=== PATIENT | male | born 1950 | race Caucasian/White ===

== ENCOUNTER → 2023-04-01 10:13 | Outpatient (BNVA) | payer MEDICARE, SELFPAY | PROVIDERS: PCP Internal Medicine Geriatric Medicine; Visit Provider Nurse Practitioner ==

== ENCOUNTER 2025-02-08 12:04 | Outpatient (REF) | payer OTHER, MEDICAID, SELFPAY ==
--- OUTSIDE RECORDS SUMMARY | 2025-02-03 09:00 | XMS_ITS | Encounter Summary ---
Author Organization [employer] Address [address] [place] [address] Care Team Providers Care Blender Laborer Name Role Phone Name, Tristan WHITE Primary Care Provider [phone] Reason for Visit * Reason Comments PUBLICITY WRITER RV Encounter Details Date Type Department Care Team ([facility] st Contact Info) Description 02/03/2025 9:00 AM EDT Telemedicine [facility] MEDICINE [address] [place] [address] Olesya Bangura RN Long-term current use of opiate analgesic Social History Tobacco Use Types Packs/Day Years Used Date Smoking Tobacco: Former Cigarettes Passive Smoke Exposure: Current Alcohol Use Standard Drinks/Week Comments Never 0 (1 standard drink = 0.6 oz pur e alcohol) Depression Answer Date Recorded Patient Health Questionnaire-9 Score 0 12/02/2023 Patient Health Questionnaire-9 Score 0 12/02/2023 Last PHQ-9: Questionnaire Data Not on file 0 12/02/2023 Housing Stability Answer Date Recorded What is your housing situation today? I have ritchie anaya 12/02/[address] you li ve. Do you have problems with any of the following? None of the above 12/02/2023 Food Insecurity Answer Date Recorded Within the past 12 months, y ou worried that your food would run out before you got money to buy more: Never True 12/02/2023 Within the past 12 months,th e food you bought just didn't last and you didn't have enough money to get more: Never True Transportation Answer Date Recorded In the past 12 months, has l ack of transportation kept you from medical appts, meetings, work or from getting things needed for daily living? No 12/02/2023 Utilities Answer Date Recorded In the past 12 months, has t he electric, gas, oil or water company threatened to shut off services in your home? No 12/02/2023 Depression Answer Date Recorded Patient Health Questionnaire-2 Score 0 12/02/2023 Internet Access Answer Date Recorded Internet Access Q1 Yes 07/27/2024 Internet Access Q2 Not on file 07/27/2024 Sex and Gender Information Value Date Recorded Sex Assigned at Male 05/12/2022 10:21 AM EDT Legal Sex Male 10:21 AM EDT Gender Identity Male 05/12/2022 10:21 AM EDT Sexual Orientation Straight 05/12/2022 10 :21 AM EDT documented as of this encounter Progress Notes * Olesya Bangura RN - 02/03/2025 9:00 AM EDT SUBJECTIVE: Joby Vieira is a 74 y.o. year old male who is called for PUBLICITY WRITER RV Preferred language for medical information: Irish Interpreted needed: Yes Cooler Servicer service utilized: [employer] Cooler Servicer name: Jewels Cooler Servicer I.D #: [id number] Joby Vieira does report adherence to Percocet 5 mg, take 1 tablet every 12 hours, last refilled 01/10/2025. The patient last took Percocet on: 02/02/2025 Medication is: 80% % effective at alleviating pain. OBJECTIVE: PROCESS CONTROL BOARD OPERATOR checked: 02/03/2025 Pill count completed for Percocet , patient reports count today is 6 , anticipated count should be 7, this is as expected. Vital Signs Pain Score: 1 Pain Loc: Back Pain Education: Yes Last PCP visit: 12/02/2023, pt cancelled appt with PCP on 01/30/25. Controlled substance agreement signed: Controlled Substance Agreement 08/28/2023 Controlled Substance Agreement 09/02/2023 Controlled Substance Agreement 06/20/2024 PUBLICITY WRITER Tele Tier: 2 Current Medications[1] Smoking status: Denies ETOH use: Denies Illicit substances: Denies Marijuana use: No ASSESSMENT: Encounter Diagnosis Name Primary? Long-term current use of opiate analgesic PLAN: Narcan education provided: Previously discussed Narcan prescription: active Reminded patient he must be seen by his PCP at least yearly in order for PCP to prescribe his Percocet safely. Will send request to PCP for Percocet refill short supply d/t last PCP visit 12/02/23. Ptwas advised to schedule a visit SEEMA with his provider, pt stated he will call PCP's M.A. today. Pt stated he had received the PUBLICITY WRITER renewal forms and has mailed them back. Joby Vieira will continue taking medication as prescribed and follow up at the next Tele PUBLICITY WRITER renewal visit or sooner if needed. Joby Vieira has verbalized understanding of care plan. Future Appointments Date Time Provider Department Center 02/03/2025 9:00 AM Olesya Bangura RN [facility] 03/31/2025 10:00 AM Olesya Bangura RN MEDICINE [facility] Olesya Bangura RN [1] Current Outpatient Medications: oxyCODONE-acetaminophen (Percocet) 5-325 MG tablet, Take 1 tablet by mouth every 12 (twelve) hours if needed for severe pain for up to 28 days. Do not start before January 10, 2025., Disp: 56 tablet, Rfl: 0 aspirin 81 MG EC tablet, Take 1 tablet by mouth in the morning., Disp: , Rfl: levothyroxine (Synthroid, Levoxyl) 100 MCG tablet, TAKE 1 TABLET BY MOUTH ONCE DAILY THURSDAY TO THURSDAY AND HOLD ON SUNDAYS, Disp: 90 tablet, Rfl: 0 lisinopril-hydroCHLOROthiazide 20-12.5 MG tablet, TAKE 1 TABLET BY MOUTH EVERY DAY, Disp: 90 tablet, Rfl: 0 meclizine (Antivert) 25 MG tablet, TAKE 1 TABLET BY MOUTH THREE TIMES DAILY NEEDED FOR DIZZINESS, Disp: 90 tablet, Rfl: 0 nabumetone (Relafen) 500 MG tablet, Take 1 tablet by mouth every 12 (twelve) hours., Disp: , Rfl: pravastatin (Pravachol) 40 MG tablet, TAKE 1 TABLET BY MOUTH AT BEDTIME, Disp: 90 tablet, Rfl: 0 raNITIdine (Zantac) 150 MG tablet, Take 1 tablet by mouth 1 (one) time each day., Disp: , Rfl: documented in this encounter Plan of Treatment Upcoming Encounters Date Type Department Care Team (Late st Contact Info) Description 03/31/2025 10:00 AM EDT Telemedicine [facility] MEDICINE [address] [place] [id number] Olesya Bangura RN documented as of this encounter Visit Diagnoses Diagnosis Long-term current use of opiate analgesic Encounter for long-term (current) use of other medications documented in this encounter Additional Health Concerns Assessment Noted Time PHQ-9 Depression Total Score: 0 12/02/19 24 11:24 AM EDT documented as of this encounter Care Teams Blender Laborer Relationship Specialty Start Date End Date Name, MD Tristan [address] [place] [address] PCP - General Family Medicine 09/14/15 documented as of this encounter
--- OUTSIDE RECORDS SUMMARY | 2025-02-08 12:53 | XMS_ITS | Clinical Summary ---
Author Organization [facility] ity Address [address] [place] [address] Care Team Providers Care Counter Pocket Trimmer Name Role Phone Unavailable Primary Care Provider Unavailabl e Social History Tobacco Use Types Packs/Day Years Used Date Smoking Tobacco: Never Assessed Sex and Gender Information Value Date Recorded Sex Assigned at Not on file Legal Sex Male 7:38 AM EST Gender Identity Not on file Sexual Orientation Not on file Plan of Treatment Health Maintenance Due Date Last Done Comments DTaP,Tdap,and Td Vaccines (1 - Tdap) 1968 Pneumococcal Vaccine: 50+ Ye ars (1 of 1 - PCV) 1999 Zoster Vaccines (1 of 2) 1999 Abdominal Aortic Aneurysm (A AA) Screen 06/15/2022 Cholesterol Screening (Lipid Panel) 06/15/2022 Colorectal Cancer Screening: Colonoscopy 06/15/2022 Falls Risk Assessment 06/15/2022 Hepatitis C Screening 06/15/2022 Social Influencers of Health Screening 06/15/2022 COVID-19 Vaccine (1 - 2023-2 5 season) 2024 RSV Immunization Adult Patie nts (1 - 1-dose 75+ series) 2024 Depression Screening 07/13/2024 Influenza Vaccine (#1) 2025 HIB Vaccines Aged Out No longer eligi ble based on patient's age to complete this topic HPV Vaccines Aged Out No longer eligi ble based on patient's age to complete this topic Hepatitis A Vaccines Aged Out No long er eligible based on patient's age to complete this topic Hepatitis B Vaccines Aged Out No long er eligible based on patient's age to complete this topic IPV Vaccines Aged Out No longer eligi ble based on patient's age to complete this topic MMR Vaccines Aged Out No longer eligi ble based on patient's age to complete this topic Meningococcal ACWY Vaccine Aged Out N o longer eligible based on patient's age to complete this topic Meningococcal B Vaccine Aged Out No l onger eligible based on patient's age to complete this topic RSV Immunization Patients Un marilynn 20 months Aged Out No longer eligible b ased on patient's age to complete this topic Varicella Vaccines Aged Out No longer eligible based on patient's age to complete this topic
== END 2025-02-08 12:05 | disposition home or self-care (01) ==
LOC: HO.HHCL 12:04
DX: E06.3 Autoimmune thyroiditis (principal)
CPT/HCPCS: 36415; 84443

== ENCOUNTER 2025-03-16 11:09 | Outpatient (AMB) | payer OTHER, SELFPAY ==
--- NOTE | 2025-03-16 11:16 | MHC.OFFVIS ---
Vital Signs 03/16/25 11:19 Height 5 ft 6 in Weight 171 lb 1.259 oz BMI 27.6 BP 133/60 Blood Pressure Location Rt brachial Position Sitting Pulse 64 Intake Visit Reasons: 1 yr follow up Intake Note: Joby presents in office today in 1 year follow up of GERD. CC: Patient reports having more acid reflux and feeling it more in his throat. Senior Linux Engineer Required: Yes Senior Linux Engineer Language: Nursery School Attendant Name: Yani Accompanied by: Self / Same As Patient Allergies No Known Allergies Allergy (Verified 03/16/25 11:25) HPI HPI 1 yr follow up: Details: Assessment & Plan (1) GERD (gastroesophageal reflux disease): Code(s): K21.9 - Gastro-esophageal reflux disease without esophagitis Category: Medical Plan Ethiopian Pola Mariee He continues on his famotidine qhs and this is controlling his sx well. Apparently, his PCP did not take over the rx. ROV 1 years. Medications: Refilled famotidine 40 mg PO BEDTIME 90 tabs 2RF K27.9 - Peptic ulcer, site unspecified, unspecified as acute or chronic, without hemorrhage or perforation TODAY'S VISIT Shai MARIEE PFSH Medical History Elevated cholesterol Constipation History of snoring Abdominal bloating History of Helicobacter pylori infection Coronary artery disease Hypothyroidism GERD (gastroesophageal reflux disease) IgG monoclonal gammopathy Leukopenia Surgical History Hx of hand surgery History of esophagogastroduodenoscopy (EGD) H/O colonoscopy Hx of appendectomy Family History Father Colon cancer Mother Diabetes Sister Diabetes Brother Prostate cancer Social History Housing: House Unable to assess alcohol history related to: Unknown Alcohol intake: former Patient Tobacco Use Status: Former Tobacco user Tobacco use type: Cigarette Current occupational status: disabled Current occupation: rt hand Gender identity: Male Review of Systems Const Denies fatigue, Denies fever(s), Denies night sweats, Denies poor appetite and Denies weight loss ENT Reports Normal hearing present, Denies dental pain, Denies dysphagia, Denies hearing loss, Denies mouth pain, Denies odynophagia, Denies throat swelling, Denies tongue swelling and Reports other (Dentition adequate) Card Reports no additional complaints Resp Reports no additional complaints GI Details: Denies abdominal pain, Denies melena, Denies bloating, Denies hematochezia, Denies constipation, Denies GI cramping, Denies dysphagia, Denies excessive flatus, Denies early satiety, Reports heartburn, Denies diarrhea, Denies nausea, Denies odynophagia, Denies vomiting and Denies hematemesis Skin/Breast Denies pruritus, Denies lesions, Denies rash and Denies jaundice Neuro Reports Normal hearing present and Denies Abnormal speech present Endo Denies fatigue Aller/Immun Denies throat swelling and Denies tongue swelling Physical Exam Vital Signs: Last Vital Signs Pulse 64 03/16/25 11:19 BP 133/60 03/16/25 11:19 BMI result Body Mass Index 27.6 Const General: cooperative, no acute distress, well developed and well groomed Nutritional Appearance: well nourished and obese Orientation/consciousness: oriented to person, oriented to place and oriented to time Limitations: language barrier HEENT Head: Yes normocephalic and Yes atraumatic Eyes General: appearance normal, both eyes and all related structures Pupils: Equal, round and reactive pupils present Neck Neck: Yes normal visual inspection and Yes no lymphadenopathy Thyroid: Thyroid normal Resp Effort & Inspection: normal respiratory effort and able to speak in complete sentences Auscultation: clear to auscultation bilaterally Cardio Rate: regular rate Rhythm: regular rhythm Heart sounds: Normal, physiologic split S2 sound present Peripheral pulses: radial pulses present and posterior tibial pulses present GI Inspection: No distended, No Abdominal panniculus present and Yes obesity Palpation (GI): Soft to palpation, nontender, no guarding, not rigid and No hepatosplenomegaly present Percussion: Yes normal to percussion Auscultation: normal bowel sounds Rectal Exam - Male: Yes deferred Skin General skin exam: no rashes or lesions noted, turgor normal, skin not dry, no jaundice, No spider nevi and no striae Rashes: no rashes Nails: normal Neuro General: oriented to person, oriented to place and oriented to time Cranial nerves: Yes Equal, round and reactive pupils present and Yes Normal hearing present Speech: No Abnormal speech present Extrem General: Yes normal to inspection, No clubbing, No cyanosis and No edema Psych Appearance: grossly normal and well kempt Mental Status: mental status grossly normal Speech and movement: Normal speech and movement present Affect: normal affect Attitude: cooperative Thought process: Normal thought process present and not confabulating Thought content: Normal thought content present Insight: Good insight present (Psych) Judgement: Good judgement present (Psych) Assessment & Plan Assessment & Plan (1) GERD (gastroesophageal reflux disease): Code(s): K21.9 - Gastro-esophageal reflux disease without esophagitis Category: Medical (2) Tubular adenoma of colon: Comment: 07/2023 scope= TA repeat in 5 years; Code(s): D12.6 - Benign neoplasm of colon, unspecified Category: Medical Plan Ethiopian # YANI MAIREE He tells me that he takes his famotidine at night and he feels well overnight into the morning but then later in the day he is developing more dyspepsia and burning in his throat. I think this is because he is simply metabolizing out the dose of famotidine so will try to get him twice a day dosing. He also feels this may be the issue. He has no other new medical problems to report in his moving his bowels well. Return office visit in 6 weeks Medications: Changed From famotidine 40 mg PO BEDTIME 90 tabs 2RF K27.9 - Peptic ulcer, site unspecified, unspecified as acute or chronic, without hemorrhage or perforation To famotidine 40 mg PO BID 180 tabs 2RF K27.9 - Peptic ulcer, site unspecified, unspecified as acute or chronic, without hemorrhage or perforation Refilled famotidine 40 mg PO BEDTIME 90 tabs 2RF K27.9 - Peptic ulcer, site unspecified, unspecified as acute or chronic, without hemorrhage or perforation Coding Level of Care Code Est Pt Level 3 (67239) Diagnoses GERD (gastroesophageal reflux disease) K21.9 Tubular adenoma of colon D12.6
[2025-03-16 11:19] VITALS: BP 133/60; PULSE 64; BMI 27.6
--- OUTSIDE RECORDS SUMMARY | 2025-03-16 12:47 | XMS_ITS | Clinical Summary ---
Author Organization [employer] Address [address] [facility] 7t [place] [address] Care Team Providers Care Gunsmith Apprentice Name Role Phone Name, Tristan WHITE Primary Care Provider [phone] Allergies No known active allergies Medications aspirin 81 MG EC tablet Take 1 tablet by mouth in the morning. 10/15/19 19 Active nabumetone (Relafen) 500 MG tablet Take 1 tablet by mouth every 12 (twelve) hours. 03/02/20 20 Active raNITIdine (Zantac) 150 MG tablet Take 1 tablet by mouth 1 (one) time each day. 03/12/20 18 Active levothyroxine (Synthroid, Levoxyl) 100 MCG tablet TAKE 1 TABLET BY MOUTH ONCE DAILY THURSDAY TO THURSDAY AND HOLD ON SUNDAYS 90 tablet 12/29/19 25 Active meclizine (Antivert) 25 MG tablet TAKE 1 TABLET BY MOUTH THREE TIMES DAILY NEEDED FOR DIZZINESS 90 tablet 01/12/20 25 Active oxyCODONE-aceta minophen (Percocet) 5-325 MG tabletIndicatio ns:Chronic pain syndrome Take 1 tablet by mouth every 12 (twelve) hours if needed for severe pain for up to 28 days. Do not start before February 21, 2025. 56 tablet 02/22/20 25 025 Active lisinopril-hydr oCHLOROthiazide 20-12.5 MG tabletIndicatio ns:Essential hypertension TAKE 1 TABLET BY MOUTH EVERY DAY 90 tablet 02/22/20 25 Active pravastatin (Pravachol) 40 MG tablet TAKE 1 TABLET BY MOUTH AT BEDTIME 90 tablet 03/07/20 25 Active lisinopril-hydr oCHLOROthiazide 20-12.5 MG tabletIndicatio ns:Essential hypertension TAKE 1 TABLET BY MOUTH EVERY DAY 90 tablet 11/24/19 025 Discontinued(Re order (will not trigger notification to Pharmacy)) pravastatin (Pravachol) 40 MG tablet TAKE 1 TABLET BY MOUTH AT BEDTIME 90 tablet 12/09/19 025 Discontinued oxyCODONE-aceta minophen (Percocet) 5-325 MG tabletIndicatio ns:Chronic pain syndrome Take 1 tablet by mouth every 12 (twelve) hours if needed for severe pain for up to 14 days. Do not start before February 07, 2025. 28 tablet 02/08/20 025 Discontinued(Re order (will not trigger notification to Pharmacy)) Active Problems Problem Noted Date Diagnosed Date Long-term current use of opiate analgesic 2024 Constipation 08/06/2023 08/06/2023 Hepatitis A antibody positive 08/06/2023 High cholesterol 08/06/2023 08/06/2023 Medial epicondylitis of left elbow 08/06/2023 08/06/2023 Monoclonal gammopathies 08/06/2023 08/06/19 24 PVD (peripheral vascular disease) 04/08/2023 History of CAD (coronary artery disease) 022 Vertigo 05/12/2018 Bilateral hearing loss 04/06/2018 Bilateral tinnitus 04/06/2018 Benign paroxysmal positional vertigo 12/24/2016 Prediabetes 12/24/2016 Disorder of aorta 08/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 Chronic pain syndrome 05/20/2012 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 04/09/20 12 Hemorrhoids 04/09/2012 Hemorrhage of rectum and anus 01/06/2012 Essential hypertension 11/25/2011 Gastroesophageal reflux disease 01/05/2011 Diverticular disease of colon 01/05/2003 Resolved Problems Problem Noted Date Diagnosed Date Resolved Date Hypothyroid 08/06/2023 08/06/2023 09/02/2023 Peptic ulcer disease 08/06/2023 08/06/2023 024 Pre-op examination 08/06/2023 08/06/2023 4 Other neutropenia 11/12/2022 04/08/2023 Encounters Date Type Department Care Team Description 03/06/2025 Refill [facility] [address] [place] [phone] Tristan Pelletier MD 03/02/2025 Travel 02/21/2025 Telephone [facility] [address] [place] [address] Tristan Pelletier MD Appointment Request 02/21/2025 Refill [facility] [address] [place] [address] Tristan Pelletier MD Essential hypertension 02/16/2025 Refill [facility] [address] [place] [address] Tristan Pelletier MD Chronic pain syndrome 02/10/2025 Telephone [facility] [address] [place], [place] [phone] Kimberly Kaplan [place] march02/08/2025 11:00 AM EDT Office Visit [facility] [address] [place] [address] Siobhan Lerner CNP Autoimmune hypothyroidism (Primary Dx); Prediabetes; Dizziness; Pre-syncope 02/08/2025 Travel 02/07/2025 Telephone [facility] [address] [place] [address] Tristan Pelletier MD Nurse Triage 02/03/2025 9:00 AM EDT Telemedicine [facility] [address] [place] [address] Olesya Bangura, SONDRA Long-term current use of opiate analgesic 02/03/2025 Telephone [facility] [address] [place] [address] Tristan Pelletier MD Med Refill 02/03/2025 Refill [facility] [address] [place] [address] Olesya Bangura, air bag builder pain syndrome 02/03/2025 Travel 01/10/2025 Refill [facility] [address] [place] [address] Jennifer Kimball MD 01/06/2025 Refill [facility] [address] [place] [address] Tristan Pelletier MD Chronic pain syndrome 12/28/2024 Refill [facility] [address] [place] [address] Tristan Pelletier MD from Last 3 Months Immunizations Immunization Administration Dates Next Due Hep B, adult 09/23/2012,05/27/2011,04/25/2011 Influenza High-dose Quadriva lent Preservative Free 05/21/2023,05/19/2022,04/24/2021,04/04 Influenza injectable quadriv alent IIV4 with preservative 05/22/2017,04/23/2016 Influenza injectable quadriv alent preservative free 04/20/2015 Influenza, High Dose Seasona l, Preservative Free 05/11/2024,05/02/2019,04/06/2018 Influenza, IIV3, injectable 05/31/2014, 0 Influenza, Split (incl. noemy fied surface antigen) 04/13/2013,04/09/2012 Moderna Covid-19 Vaccine 12+ 10/16/2020,09/19/19 21 Pfizer Covid-19 Vaccine 12+ 05/11/2024,1 07/21/2022,05/19/2022,12/05,05/21/2021 Pfizer Covid-19 Vaccine 12+ Bivalent 05/19/2022 Pfizer Covid-19 Vaccine 12+ marcus-sucrose (Khan Cap) 12/05/2021 Pneumococcal Conjugate PCV 13 03/12/2018 Pneumococcal Polysaccharide PPSV23 09/23/2012 TD (adult), 2 Lf tetanus tox oid, preservative free, adsorbed 12/19/2010 Tdap 04/08/2023,09/23/2012 Varicella 12/19/2010 Zoster, live 10/01/2016 Social History Tobacco Use Types Packs/Day Years Used Date Smoking Tobacco: Former Cigarettes Passive Smoke Exposure: Current Tobacco Cessation:Counseling Given: Not Answered Alcohol Use Standard Drinks/Week Comments Never 0 [...] Orientation Straight 05/12/2022 10 :21 AM EDT Last Filed Vital Signs Vital Sign Reading Time Taken Comments Blood Pressure 124/72 02/08/2025 11:59 AM EDT Pulse 59 02/08/2025 11:59 AM EDT Temperature 36.6 C (97.8 F) 02/08/2025 11:13 AM EDT Respiratory Rate 18 02/08/2025 11:13 AM EDT Oxygen Saturation 97% 02/08/2025 11:59 AM EDT Inhaled Oxygen Concentration - - Weight 77.7 kg (171 lb 6.4 oz) 02/08/2025 11:13 AM EDT Height 167.6 cm (5' 6 ) 02/08/2025 11:13 AM EDT Body Mass Index 27.66 02/08/2025 11:13 AM EDT Plan of Treatment Upcoming Encounters Date Type Department Care Team (Late st Contact Info) Description 03/31/2025 10:00 AM EDT Telemedicine [facility] [address] [place] [address] Olesya Bangura RN 04/24/2025 10:00 AM EDT Office Visit [facility] [address] [place] [address] Name, MD Tristan [address] [facility] [place] [address] Health Maintenance Due Date Last Done Comments CT Colonography 1949 FIT DNA/Cologuard 1949 FIT 1949 FOBT 1950 Sigmoidoscopy 1949 Alcohol/Substance Use Screening 1961 Zoster Vaccines (2 of 3) 11/26/2016 10/01/2016 Pneumococcal Vaccine: 50+ Years (3 of 3 - PCV20 or PCV21) 03/12/2023 03/12/2018, 09/23/2012 RSV Patients and Patients Aged 60 years or older (1 - 1-dose 75+ series) 2024 Depression Screening 12/01/2024 12/02/2023, 12/02/19 24 COVID-19 Vaccine ( season) 2025 05/11/2024, 05/21/2023, 05/19/2022, Additional history exists Influenza Vaccine (#1) 2025 , 05/21/2023, 05/19/2022, Additional history exists SDOH Screening 07/27/2025 07/27/2024 Diabetes: Hemoglobin A1C 02/08/2026 025, 09/02/2023, 11/12/2022 Tobacco Screening 02/08/2026 02/08/2025 Colonoscopy 07/15/2028 07/15/2023 Colorectal Cancer Screening 07/15/2028 Lipid Panel 11/16/2028 11/17/2023, 01/10, 02/20/2021 DTaP/Tdap/Td Vaccines (3 - Td or Tdap) 04/08/2033 04/08/2023, 09/23/2012, 12/19/2010 Hepatitis B Vaccines Completed 09/23/2012, 05/27/2011, 04/25/2011 Hepatitis C Screening Completed 11/02/2015 HIB Vaccines Aged Out No longer eligi [...] patient's age to complete this topic Meningococcal Vaccine Aged Out No antwon guero eligible based on patient's age to complete this topic RSV under 20 months Aged Out No longe r eligible based on patient's age to complete this topic Rotavirus Vaccines Aged Out No longer eligible based on patient's age to complete this topic Procedures Procedure Name Priority Date/Time Associated Diagnosis Comments ECG 12-LEAD Routine 02/08/2025 1:31 PM EDT Dizziness Pre-syncope TSH W/REFLEX TO FT4 Routine 02/08/2025 1 2:11 PM EDT Autoimmune hypothyroidism POCT GLYCATED HEMOGLOBIN, TOTAL Routine 02/08/2025 11:53 AM EDT Prediabetes POCT GLUCOSE Routine 02/08/2025 11:53 AM EDT Prediabetes LIPID PANEL, STANDARD Routine 11/17/2023 8:30 AM EDT History of CAD (coronary artery disease) HM COLONOSCOPY Routine 07/15/2023 HEPATITIS C ANTIBODY Routine 11/02/2015 from Last 3 Months or Most Recently Relevant to Health Maintenance Results * ECG 12 lead (02/08/2025 1:31 PM EDT) Siobhan Flores CNP - 02/08/2025 1:31 PM EDT NSR, rate 61 bpm, left axis deviation consistent with LAFB Siobhan Lerner CNP ECG ORDERABLES Final Res ult * TSH W/Reflex to FT4 (02/08/2025 12:11 PM EDT) TSH reflex Free T4 0.32 0.32 - 4.0 uIU/mL [facility] Blood Venous blood specimen / Unknown 02/08/2025 12:11 PM EDT 02/08/2025 1:19 PM EDT [facility] LAB BLOOD ORDERABLES Pamela l Result [facility] [address] [place] [address] [phone] * (ABNORMAL) POCT HGB A1C (02/08/2025 11:53 AM EDT) Hemoglobin A1C 5.8(A) 4.0 - 5.7 % QC Media Lot # [id number] Lot# Expiration Date Blood 02/08/2025 11:5 3 AM EDT [facility] POINT OF CARE TEST ENTER/ EDIT ORDERABLES Final Result * POCT Glucose (02/08/2025 11:53 AM EDT) Pathologist [facility] Glucose Blood, POC 137 60 - 200 mg/dL QC Media Lot # [id number] Lot# Expiration Date Blood Capillary blood specimen / Unknown 02/08/2025 11:53 AM EDT [facility] POINT OF CARE TEST ENTER/ EDIT ORDERABLES Final Result * Lipid Panel, Standard (11/17/2023 8:30 AM EDT) Triglycerides 48 <150 mg/dL [facility] Comment:Desirable Triglyceri de: less than 150 mg/dLBorderline High Triglyceride 150-199 mg/dLHigh Triglyceride: 200-499 mg/dLVery High Triglyceride: greater than or equal to 5OO mg/dL Cholesterol 155 <200 mg/dL [facility] Comment:Desirable Cholestero l: less than 200 mg/dLBorderline High Cholesterol: 200-239 mg/dLHigh Cholesterol: greater than 239 mg/dL LDL Cholesterol Calculated 85 <100 mg/dL [facility] Comment:Desirable LDL: less than 100 mg/dLNear Optimal/Above Optimal LDL: 110- 129 mg/dLBorderline High LDL: 130-159 mg/dLHigh LDL: 160-189 mg/dLVery High LDL: greater than or equal to 190 mg/dL HDL Cholesterol 61 >40 mg/dL [facility] Comment:Desirable HDL: great er than 40 mg/dL Note: This HDL assay may give artificially low results in patients with liver disease. Blood Venous blood specimen / Unknown 11/17/2023 8:30 AM EDT 11/17/2023 11:41 AM EDT us Tristan Pelletier MD LAB BLOOD ORDERABLES Final Resul t [facility] [address] [place] [phone] * (ABNORMAL) Colonoscopy (07/15/2023) Colonoscopy Abnormal( A) Normal Comment:2 Adenomas Removed. Repeat in 5 years us Tristan Pelletier MD HEALTH MAINTENANCE Final Result * Hepatitis C Antibody (11/02/2015) Hepatitis C Antibody Nonreactive Blood us Tristan Pelletier MD HEALTH MAINTENANCE Final Result from Last 3 Months or Most Recently Relevant to Health Maintenance Insurance [facility] [employer] Care Teams Gunsmith Apprentice Relationship Specialty Start Date End Date Name, MD Tristan [address] [place] [phone] PCP - General Family Medicine 09/14/15
--- OUTSIDE RECORDS SUMMARY | 2025-03-16 12:47 | XMS_ITS | Encounter Summary ---
Author Organization [employer] Address [address] [place] [address] 7t [place] [address] Care Team Providers Care Senior Training And Development Rep Name Role Phone NameTristan MD Primary Care Provider [phone] Encounter Details Date Type Department Care Team (Latest Contact Info) Description 01/19/2019 Abstract [facility] CONVERSION[facility] Dental, Provider, DDS Social History Tobacco Use Types Packs/Day Years Used Date Smoking Tobacco: Never Assessed Sex and Gender Information Value Date Recorded Sex Assigned at Male 05/12/2022 10:21 AM EDT Legal Sex Male 10:21 AM EDT Gender Identity Male 05/12/2022 10:21 AM EDT Sexual Orientation Straight 05/12/2022 10 :21 AM EDT documented as of this encounter Plan of Treatment Upcoming Encounters Date Type Department Care Team (Late st Contact Info) Description 03/31/2025 10:00 AM EDT Telemedicine [facility] [address] [place] [phone] Olesya Bangura, RN 04/24/2025 10:00 AM EDT Office Visit [facility] [address] [place] [address] Tristan Pelletier MD [address] [place] [address] documented as of this encounter Visit Diagnoses Not on filedocumented in this encounter Care Teams Senior Training And Development Rep Relationship Specialty Start Date End Date Tristan Pelletier MD [address] [place] [phone] PCP - General Family Medicine 09/14/15 documented as of this encounter
--- OUTSIDE RECORDS SUMMARY | 2025-03-16 12:48 | XMS_ITS | Encounter Summary ---
Author Organization [employer] Address [address] [facility] 7t [place] [address] Care Team Providers Care Fruit Or Nut Farm Worker Name Role Phone Name, Tristan WHITE Primary Care Provider [phone] Reason for Visit * Reason Onset Date Comments Medication Question 02/02/2024 Encounter Details Date Type Department Care Team ([facility] st Contact Info) Description 02/02/2024 Telephone [facility] [address] [place], [place] [phone] Name, MD Tristan [address] [place], [place] [phone] Medication Question Social History Tobacco Use Types Packs/Day Years [...] Recorded Patient Health Questionnaire-2 Score 0 12/02/2023 Sex and Gender Information Value Date Recorded Sex Assigned at Male 05/12/2022 10:21 AM EDT Legal Sex Male 10:21 AM EDT Gender Identity Male 05/12/2022 10:21 AM EDT Sexual Orientation Straight 05/12/2022 10 :21 AM EDT documented as of this encounter Miscellaneous Notes * Telephone Encounter - Kaylen Ghotra RN - 02/02/2024 2:46 PM EDT T/C to pt. For below message on [phone].Message states, subscriber you are calling Is not in service. Not able to LVM. * Telephone Encounter - Sonny Vargas - 02/02/2024 12:50 PM EDT Tc from pt requesting prescription for Famotidine. Pt stated medication was prescribed by [facility] gastro and was advised to contact pcp for new script. Story Analyst was unable to clarify on MG pt stated he didnot remember. If any questions you can contact pt at [phone]. Ugandan Speaker. documented in this encounter Plan of Treatment Upcoming Encounters Date Type Department Care Team (Late st Contact Info) Description 03/31/2025 10:00 AM EDT Telemedicine [facility] [address] [place] [address] [phone] Olesya Bangura, SONDRA 04/24/2025 10:00 AM EDT Office Visit [facility] [address] [place] [address] [phone] Name, MD Tristan [address] [place] [phone] documented as of this encounter Visit Diagnoses Not on filedocumented in this encounter Additional Health Concerns Assessment Noted Time PHQ-9 Depression Total Score: 0 12/02/19 24 11:24 AM EDT documented as of this encounter Care Teams Fruit Or Nut Farm Worker Relationship Specialty Start Date End Date Name, MD Tristan [address] [place] [address] PCP - General Family Medicine 09/14/15 documented as of this encounter
--- OUTSIDE RECORDS SUMMARY | 2025-03-16 12:48 | XMS_ITS | Encounter Summary ---
Author Organization [employer] Address [address] [facility] 7t [place] [address] Care Team Providers Care Warm In Name Role Phone Name, Tristan WHITE Primary Care Provider [phone] Encounter Details Date Type Department Care Team ([facility] st Contact Info) Description 12/10/2023 Telephone [facility] [address] [place], [place] [phone] Name, MD Tristan [address] [place] [address] Social History Tobacco Use Types Packs/Day Years [...] Info) Description 03/31/2025 10:00 AM EDT Telemedicine [facility] [address] [place] [address] Olesya Bangura RN 04/24/2025 10:00 AM EDT Office Visit [facility] [address] [place] [phone] Name, MD Tristan [address] [place] [address] documented as of this encounter Visit Diagnoses Not on filedocumented in this encounter Additional Health Concerns Assessment Noted Time PHQ-9 Depression Total Score: 0 12/02/19 24 11:24 AM EDT documented as of this encounter Care Teams Warm In Relationship Specialty Start Date End Date NameTristan MD [address] [place] [address] PCP - General Family Medicine 09/14/15 documented as of this encounter
--- OUTSIDE RECORDS SUMMARY | 2025-03-16 12:48 | XMS_ITS | Encounter Summary ---
Author Organization [employer] Address [address] [facility] 7t [place] [address] Care Team Providers Care Armored Machine Operator Name Role Phone Name, Tristan WHITE Primary Care Provider Reason for Visit * Reason Onset Date Comments Appointment Request 02/21/2025 Encounter Details Date Type Department Care Team ([facility] st Contact Info) Description 02/21/2025 Telephone [facility] [address] [place], [place] [phone] Name, MD Tristan [address] [place], [place] [phone] Appointment Request Social History Tobacco Use Types Packs/Day Years [...] encounter Miscellaneous Notes * Telephone Encounter - Savana Henriquez - 02/21/2025 8:19 AM EDT Tc from pt requesting to reschedule appt. Pt stated unable to attend due to personal problems. Contact pt at [phone] Need hides and skins colorer documented in this encounter Plan of Treatment Upcoming Encounters Date Type Department Care Team (Late st Contact Info) Description 03/31/2025 10:00 AM EDT Telemedicine [facility] [address] [place] [phone] Olesya Bangura, RN 04/24/2025 10:00 AM EDT Office Visit [facility] [address] [place] [address] Name, MD Tristan [address] [place] [address] documented as of this encounter Visit Diagnoses Not on filedocumented in this encounter Additional Health Concerns Assessment Noted Time PHQ-9 Depression Total Score: 0 12/02/19 24 11:24 AM EDT documented as of this encounter Care Teams Armored Machine Operator Relationship Specialty Start Date End Date Tristan Pelletier MD [address] [place] [phone] PCP - General Family Medicine 09/14/15 documented as of this encounter
--- OUTSIDE RECORDS SUMMARY | 2025-03-16 12:48 | XMS_ITS | Encounter Summary ---
Author Organization [employer] Address [address] [facility] 7t [place] [address] Care Team Providers Care Dialysis Tech Name Role Phone Name, Tristan WHITE Primary Care Provider [phone] Reason for Visit * Reason Onset Date Comments Reschedule 08/06/2023 Encounter Details Date Type Department Care Team ([facility] st Contact Info) Description 08/06/2023 Telephone [facility] [address] [place], [place] [phone] Name, MD Tristan [address] [place] [address] Reschedule Social History Tobacco Use Types Packs/Day Years Used Date Smoking Tobacco: Former Cigarettes Passive Smoke Exposure: Current Alcohol Use Standard Drinks/Week Comments Never 0 (1 standard drink = 0.6 oz pur e alcohol) Depression Answer Date Recorded Patient Health Questionnaire-9 Score 0 11/12/2022 Housing Stability Answer Date Recorded What is your housing situation today? I have housing today, but I am worried about losing housing in the future 04/27/[address] you li ve. Do you have problems with any of the following? None of the above 04/27/2023 Food Insecurity Answer Date Recorded Within the past 12 months, y ou worried that your food would run out before you got money to buy more: Never True 04/27/2023 Within the past 12 months,th e food you bought just didn't last and you didn't have enough money to get more: Never True Transportation Answer Date Recorded In the past 12 months, has l ack of transportation kept you from medical appts, meetings, work or from getting things needed for daily living? No 04/27/2023 Utilities Answer Date Recorded In the past 12 months, has t he electric, gas, oil or water company threatened to shut off services in your home? No 04/27/2023 Depression Answer Date Recorded Patient Health Questionnaire-2 Score 0 11/12/2022 Sex and Gender Information Value Date Recorded Sex Assigned at Male 05/12/2022 10:21 AM EDT Legal Sex Male 10:21 AM EDT Gender Identity Male 05/12/2022 10:21 AM EDT Sexual Orientation Straight 05/12/2022 10 :21 AM EDT documented as of this encounter Miscellaneous Notes * Telephone Encounter - Leigha Pierre - 08/06/2023 9:25 AM EST TC from pt to r/s todays visit . Called in within the one hour window prior to visit time. Rescheduled for 09/02/2023 Educated caller on no show protocol documented in this encounter Plan of Treatment Upcoming Encounters Date Type Department Care Team (Late st Contact Info) Description 03/31/2025 10:00 AM EDT Telemedicine [facility] [address] [place] [phone] Olesya Bangura RN 04/24/2025 10:00 AM EDT Office Visit [facility] [address] [place] [phone] NameTristan MD [address] [place] [phone] documented as of this encounter Visit Diagnoses Not on filedocumented in this encounter Additional Health Concerns Assessment Noted Time PHQ-9 Depression Total Score: 0 11/13/19 23 9:44 AM EDT documented as of this encounter Care Teams Dialysis Tech Relationship Specialty Start Date End Date NameTristan MD [address] [place] [phone] PCP - General Family Medicine 09/14/15 documented as of this encounter
--- OUTSIDE RECORDS SUMMARY | 2025-03-16 12:48 | XMS_ITS | Clinical Summary ---
Author Organization [facility] Address [address] [place] [address] Care Team Providers Care Shade Cutter Name Role Phone Unavailable Primary Care Provider [...] 06/15/2022 Social Influencers of Health Screening 06/15/2022 RSV Immunization Adult Patie nts (1 - 1-dose 75+ series) 2024 Depression Screening 07/13/2024 COVID-19 Vaccine ( - 2023-2 5 season) 2025 Influenza Vaccine (#1) 2025 HIB Vaccines Aged [...]
== END 2025-03-16 11:43 | disposition home or self-care (01) ==
LOC: HO.HGI 11:09
PROVIDERS: PCP Internal Medicine Geriatric Medicine; Visit Provider Nurse Practitioner
DX: K21.9 Gastro-esophageal reflux disease without esophagitis (principal); D12.6 Benign neoplasm of colon, unspecified
CPT/HCPCS: 99213

== ENCOUNTER → 2025-03-16 11:09 | Outpatient (BNVA) | payer OTHER, SELFPAY | PROVIDERS: PCP Internal Medicine Geriatric Medicine; Visit Provider Nurse Practitioner | DX: K21.9 Gastro-esophageal reflux disease without esophagitis (principal); D12.6 Benign neoplasm of colon, unspecified | CPT/HCPCS: 99212 ==

== ENCOUNTER 2025-05-11 11:04 | Outpatient (AMB) | payer OTHER, SELFPAY ==
--- NOTE | 2025-05-11 11:09 | A.OFFVIS_ITS ---
Vital Signs 05/11/25 11:33 Height 5 ft 6 in Weight 175 lb BMI 28.2 BP 147/67 H Blood Pressure Location Rt brachial Position Sitting Pulse 58 Intake Visit Reasons: 8 weeks eval pepcid Intake Note: Joby presents to in office follow up to evaluate pepcid response. CC: Patient reports doing better with Pepcid. Logistics Account Manager Required: Yes Logistics Account Manager Language: [place] Accompanied by: Self / Same As Patient Allergies No Known Allergies Allergy (Verified 05/11/25 11:41) HPI HPI 8 weeks eval pepcid: Details: Assessment & Plan (1) GERD (gastroesophageal reflux disease): Code(s): K21.9 - Gastro-esophageal reflux disease without esophagitis Category: Medical (2) Tubular adenoma of colon: Comment: 07/2023 scope= TA repeat in 5 years; Code(s): D12.6 - Benign neoplasm of colon, unspecified Category: Medical Plan [place] # SUPRIYA KODI He tells me that he takes his famotidine at night and he feels well overnight into the morning but then later in the day he is developing more dyspepsia and burning in his throat. I think this is because he is simply metabolizing out the dose of famotidine so will try to get him twice a day dosing. He also feels this may be the issue. He has no other new medical problems to report in his moving his bowels well. Return office visit in 6 weeks Medications: Changed From famotidine 40 mg PO BEDTIME 90 tabs 2RF K27.9 - Peptic ulcer, site unspecified, unspecified as acute or chronic, without hemorrhage or perforation To famotidine 40 mg PO BID 180 tabs 2RF K27.9 - Peptic ulcer, site unspecified, unspecified as acute or chronic, without hemorrhage or perforation Refilled famotidine 40 mg PO BEDTIME 90 tabs 2RF K27.9 - Peptic ulcer, site unspecified, unspecified as acute or chronic, without hemorrhage or perforation TODAY'S VISIT NEPALI #Stewart castellon [facility] Medical History Elevated cholesterol Constipation History of snoring Abdominal bloating History of Helicobacter pylori infection Coronary artery disease Hypothyroidism GERD (gastroesophageal reflux disease) IgG monoclonal gammopathy Leukopenia Surgical History Hx of hand surgery History of esophagogastroduodenoscopy (EGD) H/O colonoscopy Hx of appendectomy Family History Father Colon cancer Mother Diabetes Sister Diabetes Brother Prostate cancer Social History Housing: House Alcohol intake: former Patient Tobacco Use Status: Former Tobacco user Tobacco use type: Cigarette Current occupational status: disabled Current occupation: rt hand Gender identity: Male Review of Systems Const Denies fatigue, Denies fever(s), Denies night sweats, Denies poor appetite and Denies weight loss Eyes Reports requires corrective lenses ENT Reports Normal hearing present, Denies dental pain, Denies dysphagia, Denies hearing loss, Denies mouth pain, Denies odynophagia, Denies throat swelling, Denies tongue swelling and Reports other (Dentition adequate) GI Details: Denies abdominal pain, Denies melena, Denies bloating, Denies hematochezia, Denies constipation, Denies GI cramping, Denies dysphagia, Denies excessive flatus, Denies early satiety, Denies heartburn, Denies diarrhea, Denies nausea, Denies odynophagia, Denies vomiting and Denies hematemesis Skin/Breast Denies pruritus, Denies lesions, Denies rash and Denies jaundice Neuro Reports Normal hearing present and Denies Abnormal speech present Endo Denies fatigue Aller/Immun Denies throat swelling and Denies tongue swelling Physical Exam Vital Signs: Last Vital Signs Pulse 58 05/11/25 11:33 BP 147/67 H 05/11/25 11:33 BMI result Body Mass Index 28.2 Const General: cooperative, no acute distress, well developed and well groomed Nutritional Appearance: well nourished, obese and overweight Orientation/consciousness: oriented to person, oriented to place and oriented to time Limitations: No language barrier, ambulation with cane, ambulation with walker and wheelchair HEENT Head: Yes normocephalic and Yes atraumatic Eyes General: appearance normal, both eyes and all related structures Pupils: Equal, round and reactive pupils present Neck Neck: Yes normal visual inspection and Yes no lymphadenopathy Thyroid: Thyroid normal Resp Effort & Inspection: normal respiratory effort and able to speak in complete sentences Auscultation: clear to auscultation bilaterally Cardio Rate: regular rate Rhythm: regular rhythm Heart sounds: Normal, physiologic split S2 sound present Peripheral pulses: radial pulses present and posterior tibial pulses present GI Inspection: No distended and No Abdominal panniculus present Palpation (GI): Soft to palpation, nontender, no guarding, not rigid, No hepatosplenomegaly present and Hepatosplenomegaly present Percussion: Yes normal to percussion Auscultation: normal bowel sounds Rectal Exam - Male: Yes deferred Skin General skin exam: no rashes or lesions noted, turgor normal, skin not dry, no jaundice, No spider nevi and no striae Rashes: no rashes Nails: normal Neuro General: oriented to person, oriented to place and oriented to time Cranial nerves: Yes Equal, round and reactive pupils present and Yes Normal hearing present Speech: No Abnormal speech present Extrem General: Yes normal to inspection, No clubbing, No cyanosis and No edema Psych Thought process: Normal thought process present and not confabulating Thought content: Normal thought content present Insight: Good insight present (Psych) Judgement: Good judgement present (Psych) Assessment & Plan Assessment & Plan (1) GERD (gastroesophageal reflux disease): Code(s): K21.9 - Gastro-esophageal reflux disease without esophagitis Category: Medical Plan NEPALI #V live HE IS ON FAMOTIDINE 40 MG TWICE A DAY - The patient is a 74-year-old male presenting with Gastroesophageal Reflux Disease (GERD). - Previously, the patient's famotidine dosage was increased to twice daily. - Reports improvement with the current dosage regimen of famotidine. - No further symptoms or complications related to GERD have been reported. - The patient does not feel the need for further adjustments to the treatment plan. Return office visit in 6 months Medications: Refilled famotidine 40 mg PO BID 180 tabs 2RF K27.9 - Peptic ulcer, site unspecified, unspecified as acute or chronic, without hemorrhage or perforation Coding Level of Care Code Est Pt Level 3 (75498) Diagnoses GERD (gastroesophageal reflux disease) K21.9
[2025-05-11 11:33] VITALS: BP 147/67; PULSE 58; BMI 28.2
--- OUTSIDE RECORDS SUMMARY | 2025-05-11 13:49 | XMS_ITS | Clinical Summary ---
Author Organization [facility] ity Address [address] [place] [address] Care Team Providers Care Mixer And Blender Name Role Phone Unavailable Primary Care Provider Unavailabl e Social History Tobacco Use Types Packs/Day Years Used Date Smoking Tobacco: Never Assessed Sex and Gender Information Value Date Recorded Sex Assigned at Not on file Legal Sex Male 7:38 AM EST Gender Identity Not on file Sexual Orientation Not on file Plan of Treatment Health Maintenance Due Date Last Done Comments Colorectal Cancer Screening: Colonoscopy 1950 DTaP,Tdap,and Td Vaccines (1 - Tdap) 1968 Pneumococcal Vaccine: 50+ Ye ars (1 of 1 - PCV) 1999 Zoster Vaccines (1 of 2) 1999 Abdominal Aortic Aneurysm (A AA) Screen 06/15/2022 Cholesterol Screening (Lipid Panel) 06/15/2022 Falls Risk Assessment 06/15/2022 Hepatitis C Screening 06/15/2022 Social Influencers of Health Screening 06/15/2022 RSV Immunization Adult Patie nts (1 - 1-dose 75+ series) 2024 Depression Screening 07/13/2024 COVID-19 Vaccine (1 - 2023-2 5 season) 2025 Influenza Vaccine [...]
== END 2025-05-11 16:40 | disposition home or self-care (01) ==
LOC: HO.HGI 11:05
PROVIDERS: PCP Internal Medicine Geriatric Medicine; Visit Provider Nurse Practitioner
DX: K21.9 Gastro-esophageal reflux disease without esophagitis (principal)
CPT/HCPCS: 99213

== ENCOUNTER → 2025-05-11 11:04 | Outpatient (BNVA) | payer OTHER, SELFPAY | PROVIDERS: PCP Internal Medicine Geriatric Medicine; Visit Provider Nurse Practitioner | DX: K21.9 Gastro-esophageal reflux disease without esophagitis (principal); D12.6 Benign neoplasm of colon, unspecified; E66.9 Obesity, unspecified; Z68.28 Body mass index [BMI] 28.0-28.9, adult; Z87.891 Personal history of nicotine dependence; E78.5 Hyperlipidemia, unspecified | CPT/HCPCS: 99212 ==